=== PATIENT | female | born 2000 | race African-American/Black ===

== ENCOUNTER 2023-10-05 18:48 | Emergency (ER) | payer OTHER ==
[2023-10-05 19:10] VITALS: BP 115/75; PULSE 89; RESP 18; TEMP 98.5; BMI 24.6
[2023-10-05 20:19] LABS: HCG,QUALITATIVE URINE Negative
[2023-10-05 20:48] LABS: URIC ACID CRYSTALS FEW /hpf (NONE SEEN)
== END 2023-10-05 20:54 | disposition home or self-care (01) ==
LOC: FER 18:48
DX: R10.30 Lower abdominal pain, unspecified (principal); Z01.419 Encounter for gynecological examination (general) (routine) without abnormal findings
CPT/HCPCS: 81003; 81015; 84703; 99283-25

== ENCOUNTER 2023-11-29 12:33 | Emergency (ER) | payer OTHER ==
[2023-11-29 13:26] VITALS: BP 127/87; PULSE 60; RESP 18; TEMP 98.3; BMI 25.5
[2023-11-29 13:26] LABS: CALCIUM 9.7 mg/dl (8.5-10.1); CREATININE 0.7 mg/dl (0.6-1.3); POTASSIUM 3.8 mmol/L (3.5-5.1)
== END 2023-11-29 13:53 | disposition home or self-care (01) ==
LOC: FER 12:33
DX: R00.2 Palpitations (principal)
CPT/HCPCS: 36415; 80048; 93005; 99284-25

== ENCOUNTER 2024-08-17 16:43 | Emergency (ER) | payer OTHER ==
[2024-08-17 16:55] VITALS: BMI 24.5
[2024-08-17 17:01] VITALS: BP 136/88; PULSE 84; RESP 16; TEMP 98.2
[2024-08-17 18:25] LABS: HEMATOCRIT 36.5 % (32.4-45.2); HEMOGLOBIN 11.9 G/dL (10.7-15.3); MCH 28.2 pg (25.7-33.7); MCHC 32.7 g/dl (32.0-36.0); MEAN CELL VOLUME 86.2 fl (80-96); MEAN PLT VOLUME 7.8 fl (7.5-11.1); PLATELET COUNT 253.4 10^3/uL (134-434); RBC 4.23 10^6/uL (3.60-5.2); RDW 16.2 % (11.6-15.6); WHITE BLOOD COUNT 6.5 10^3/uL (4.0-10.8)
[2024-08-17 18:31] LABS: PROTHROMBIN TIME (PATIENT) 11.4 SEC (9.7-13.0)
[2024-08-17 18:32] LABS: PLATELET ESTIMATE ADEQUATE
[2024-08-17 18:34] LABS: ACTIVATED PTT 32.9 SECONDS (25.2-36.5)
[2024-08-17 18:41] LABS: ALBUMIN 4.2 g/dl (3.4-5.0); ALK PHOS 56 U/L (45-117); ANION GAP 6 mmol/L (4-13); BILIRUBIN,TOTAL 0.6 mg/dl (0.2-1); CALCIUM 9.3 mg/dl (8.5-10.1); CHLORIDE 104 mmol/L (98-107); CO2 26 mmol/L (21-32); CREATININE 0.7 mg/dl (0.6-1.3); GLUCOSE,RANDOM 81 mg/dl (74-106); POTASSIUM 3.7 mmol/L (3.5-5.1); SGOT/AST 14 U/L (15-37); SGPT/ALT 10 U/L (7-52); SODIUM 136 mmol/L (136-145); TOT PROT 7.3 g/dl (6.4-8.2)
== END 2024-08-17 21:18 | disposition home or self-care (01) ==
LOC: FER 16:43
DX: O20.0 Threatened abortion (principal)
CPT/HCPCS: 36415; 76817-TC; 80053; 81003; 81015; 84702; 85027; 85610; 85730; 86850; 86900; 86901; 87086; 99284-25